=== PATIENT | female | born 1950 | race Caucasian/White ===

== ENCOUNTER → 2021-06-06 | Outpatient (CLI) | payer MEDICARE, OTHER ==
--- NOTE | 2021-06-09 15:26 | RAD ---
MR#: [id number] Date of Study: 06/06/2021 Ordering Physician: QAMAR RAY, Referring Physician: QAMAR RAY, Tech: Estelle Rincon RDMS, RVT, RTR APPROVED REPORT Patient Location : OUT-PATIENT Indications Venous Insufficiency Greater Saphenous Veins (GSV) Significant venous relux noted in the RIGHT GSV at the following levels : Superficial Femoral Junctio n, Proximal Thigh, Mid Thigh, Distal Thigh, Proximal Calf, Mid Calf, Distal Calf Significant venous relux noted in the LEFT GSV at the following levels : Superficial Femoral Junction , Proximal Thigh, Mid Thigh, Distal Thigh, Proximal Calf Lesser Saphenous Veins (LSV) Significant venous reflux is noted in the Bilateral LSV. Findings Grayscale images of superficial veins of bilateral lower extremities did not show any obvious thrombu s. Spectral waveform and color duplex analysis was performed bilaterally. The right greater saphenous v ein showed significant reflux from groin to the ankle. It measured 6 mm at the saphenofemoral juncti on and showed a significant reflux of 2.3 seconds. The vein get smaller in caliber after takeoff of varicose veins at the knee level. The left greater saphenous vein showed significant reflux from groin to the proximal calf. It measur ed 5.9 mm at the saphenofemoral junction and showed a significant reflux of 2.1 seconds. The right lesser saphenous vein measured 3.9 mm the saphenopopliteal junction showed significant refl ux of 1.7 seconds. The left lesser saphenous vein measured 5.7 mm at the saphenous popliteal junctio n and showed a significant reflux of 3 seconds. Critical Notification Critical Value: No <Conclusion> Bilateral lower extremity venous reflux study showed significant venous insufficiency involving bilat eral greater and lesser saphenous veins. Signed by : Bora Barreto, Electronically Approved : 06/09/2021 15:25:50
== END ==
LOC: US 12:57
PROVIDERS: ATTEND Internal Medicine Cardiovascular Disease
DX: I87.2 Venous insufficiency (chronic) (peripheral) (principal); I83.93 Asymptomatic varicose veins of bilateral lower extremities
CPT/HCPCS: 93970